=== PATIENT | male | born 1990 | race African-American/Black ===

== ENCOUNTER → 2020-09-09 | Emergency (ER) | payer BC ==
[~2020-09-09] VITALS: Ht 195.6 cm; Wt 108.9 kg
[~2020-09-09] MED LIST: AMOX-CLAV 875-1 EACH PO; BACTRIM DS TAB1 EACH PO; INTESTINEX680 M1 PO; NAPROXEN375 MG PO
== END | disposition home or self-care (01) ==
LOC: ER 17:35
DX: R60.0 Localized edema (principal); S91.012S Laceration without foreign body, left ankle, sequela; W45.8XXS Other foreign body or object entering through skin, sequela

== ENCOUNTER 2020-09-25 19:21 | Emergency (ER) | payer BC ==
[~2020-09-25] VITALS: Ht 193 cm; Wt 106.6 kg
[~2020-09-25 19:21] MED LIST changes: -BACTRIM DS TAB1 EACH PO
[2020-09-25] MEDS ORDERED: BACTRIM DS TAB1 EACH PO (19:57)
== END 2020-09-25 20:06 | disposition home or self-care (01) ==
LOC: ER 19:21
DX: S91.022S Laceration with foreign body, left ankle, sequela (principal); W05 Fall from non-moving wheelchair, nonmotorized scooter and motorized mobility scooter